=== PATIENT | male | born 1950 | race Caucasian/White ===

== ENCOUNTER 2018-10-14 12:54 | Emergency (ER) | payer MEDICARE ==
[~2018-10-14] VITALS: Ht 172.7 cm; Wt 81.8 kg
[2018-10-14 13:03] VITALS: Ht 172.7 cm; Wt 81.8 kg
[2018-10-14] MEDS ORDERED: LIPITOR40 MG PO (13:06)
[2018-10-14] MEDS ORDERED: PLAVIX75 MG PO (13:06)
[2018-10-14] MEDS ORDERED: TOPROL XL25 MG (13:06)
[2018-10-14] MEDS ORDERED: FISH OIL 1,0001 CA1 (13:07)
[2018-10-14] MEDS ORDERED: HYDROCHLOROTH12.5 M1 PO (13:07)
[2018-10-14 15:21] LABS: APPEARANCE CLEAR (CLEAR); BILIRUBIN NEGATIVE (NEGATIVE); COLOR YELLOW (YELLOW); GLUCOSE NEGATIVE (NEGATIVE); KETONE NEGATIVE (NEGATIVE); NITRITE NEGATIVE (NEGATIVE); PROTEIN NEGATIVE (NEGATIVE); SPECIFIC GRAVITY 1.015 (1.005-1.020); UROBILINOGEN NORMAL (NORMAL)
[2018-10-14 15:22] LABS: BACTERIA FEW /hpf (NONE SEEN); RED CELLS - URINE 25-50 /hpf (0-5); WHITE CELLS - URINE 0-5 /hpf (0-5)
[2018-10-14] MEDS ORDERED: HYDROCODON-ACE1 EA10 PO (15:37)
[2018-10-14] MEDS ORDERED: FLOMAX0.4 MG PO (15:37)
[2018-10-14 16:03] VITALS: BP 136/72
== END 2018-10-14 16:04 | disposition home or self-care (01) ==
LOC: D.ER 12:54
PROVIDERS: Emergency Medicine
DX: N20.0 Calculus of kidney (principal)